=== PATIENT | female | born 1990 | race Caucasian/White ===

== ENCOUNTER 2016-08-14 09:03 | Emergency (ER) | payer MEDICAID ==
[~2016-08-14] VITALS: Ht 149.9 cm; Wt 65.9 kg
[~2016-08-14 09:03] MED LIST: IBUP400 PO
[2016-08-14 09:22] VITALS: BP 119/85; PULSE 86; RESP 16; TEMP 98.5; O2SAT 99
[2016-08-14] MEDS ORDERED: TUSSSUS2 PO (10:02)
--- NOTE | 2016-08-14 10:03 | PD ---
HPI . Cold symptoms Chief Complaint: Cold / Flu Symptoms Time Seen by Provider: 09:45 Travel History International Travel<30 days: No Contact w/Intl Traveler<30days: No Traveled to known affect area: No History of Present Illness HPI Patient presents with a 4 day history of cold symptoms. She describes nasal congestion, cough, chest discomfort with coughing and a temperature of 99.7. She reports some mild nasal bleeding which supports her nose. She states that her symptoms have been unrelieved by Robitussin. PFS Past Medical History Medical History: Denies Significant Hx Diminished Hearing: No Reproductive: Yes (hx abnormal pap smear) Immunizations Current: No Tetanus Vaccination: < 5 Years Influenza Vaccination: No ?: Not LMP: 2 weeks ago : 2 Para: 1 Miscarriage: 1 Past Surgical History Surgical History: No Previous Surgery Social History Alcohol Use: Yes (socially wine) Tobacco Use: Yes (07/15 PPD) Substance Use: No Allergies-Medications (Allergen,Severity, Reaction): Coded Allergies: No Known Allergies (Verified , 08/14/16) Reported Meds & Prescriptions Reported Meds & Active Scripts Active No Active Prescriptions or Reported Medications Review of Systems Except as stated in HPI: all other systems reviewed are Neg General / Constitutional: Positive: Fever, Chills HENT: Positive: Congestion, Other (no facial pain) Cardiovascular: Positive: Chest Pain or Discomfort Respiratory: Positive: Cough Physical Exam Narrative GENERAL: Healthy-appearing young woman in no acute distress. SKIN: Warm and dry. HEAD: Atraumatic. Normocephalic. EYES: Pupils equal and round. ENT: No nasal bleeding or discharge. Mucous membranes pink and moist. Oropharynx has no erythema, swelling, exudate or tonsillar enlargement. NECK: Trachea midline. Neck is supple with no cervical lymphadenopathy. CARDIOVASCULAR: Regular rate and rhythm. Heart sounds are normal. RESPIRATORY: No accessory muscle use. Lungs are clear with full air movement throughout. GASTROINTESTINAL: Abdomen soft, non-tender, nondistended. MUSCULOSKELETAL: No obvious deformities. No edema. NEUROLOGICAL: Awake and alert. No obvious cranial nerve deficits. Motor grossly within normal limits. Normal speech. PSYCHIATRIC: Appropriate mood and affect; insight and judgment normal. Data Data Last Documented VS Vital Signs Date Time Temp Pulse Resp B/P Pulse Ox O2 Delivery O2 Flow Rate FiO2 08/14/16 09:27 82 16 99 Room Air 08/14/16 09:22 98.5 119/85 [facility] Medical Decision Making Medical Screen Exam Complete: Yes Emergency Medical Condition: Yes Differential Diagnosis Differential diagnosis includes but is not limited to influenza, upper respiratory infection, bronchitis, pneumonia Narrative Course Patient presents with cold symptoms. She has no worrisome physical exam findings. She does state that she has been taking Robitussin without relief of her cough. Diagnosis Primary Impression: URI (upper respiratory infection) Qualified Code: J06.9 - Viral upper respiratory tract infection Patient Instructions: Cold Symptoms (ED), General Instructions Additional Instructions: I recommend the use of a Neti Pot. You may use a nasal spray such as Afrin for up to 3 days. You may take an yvno-sxi-ykkzhce antihistamine such as Zyrtec or Claritin as needed for runny secretions. You may take pseudoephedrine as needed for congestion. You will need to sign for this at the pharmacy. You may take a cough syrup such as Delsym as needed for cough. Med/Other Pt SpecificInfo: Prescription(s) given Scripts Hydrocodone-Chlorpheniramine 12 HR Liq (Tussionex Pennkinetic Ext 12 HR Liq)10- 8 Mg/5 Ml Susp5 Ml PO Q12H PRN (COUGH AND/OR COLD SYMPTOMS) #60 ML Ref 0 Prov:Cyn Baig MD 08/14/16 Disposition: 01 DISCHARGE HOME Condition: Stable Cyn Baig MD Aug 14, 2016 10:03
== END 2016-08-14 10:10 | disposition home or self-care (01) ==
LOC: PHEFT 09:03
DX: J06.9 Acute upper respiratory infection, unspecified (principal); F17.210 Nicotine dependence, cigarettes, uncomplicated
CPT/HCPCS: 99283

== ENCOUNTER 2017-01-14 22:13 | Emergency (ER) | payer MEDICAID, OTHER ==
[~2017-01-14] VITALS: Ht 149.9 cm; Wt 67.3 kg
[~2017-01-14 22:13] MED LIST changes: -IBUP400 PO; +TUSSSUS2 PO
[2017-01-14 22:17] VITALS: BP 110/64; PULSE 71; RESP 18; TEMP 98.1; O2SAT 100
[2017-01-14 23:21] LABS: BLOOD, URINE NEG (NEG); GLUCOSE,URINE NEG (NEG); KETONE, URINE NEG (NEG); NITRITE,URINE NEG (NEG); PH, URINE 5.5 (5.0-8.5)
[2017-01-14 23:26] LABS: MUCUS URINE OCC /lpf (OCC); SQUAMOUS EPITHELIAL CELL URINE 0-5 /hpf (0-5); URINE COLOR YELLOW (YELLW/STRAW)
[2017-01-14 23:28] LABS: COMMENT (UR) CULT NOT INDICATED; CULTURE IF INDICATED CULT NOT INDICATED; WBC, URINE 0-2 /hpf (0-5)
[2017-01-14 23:51] LABS: BETA HCG QUANT 34960 MIU/ML (0-5)
--- NOTE | 2017-01-15 00:07 | PD ---
HPI Chief Complaint: Related Problem Time Seen by Provider: 22:26 Travel History International Travel<30 days: No Contact w/Intl Traveler<30days: No Traveled to known affect area: No History of Present Illness HPI 26-year-old woman, 4 para 1, 0, 2, 1 with 2 previous early miscarriages , presents to the emergency department with an LMP of about December 02, with several weeks' worth of mild lower abdominal cramping. She otherwise had felt generally well. She denies any vaginal bleeding, vaginal discharge, urinary symptoms, or other janusz. States she came in tonight because it wasn't getting any better. History Past Medical History Medical History: Denies Significant Hx Tetanus Vaccination: < 5 Years Influenza Vaccination: No LMP: 12-01-16 : 4 Para: 2 Past Surgical History Surgical History: No Previous Surgery Social History Alcohol Use: Yes (socially wine) Tobacco Use: No (quit) Allergies-Medications (Allergen,Severity, Reaction): Coded Allergies: No Known Allergies (Verified , 01/14/17) Reported Meds & Prescriptions Reported Meds & Active Scripts Active Review of Systems Except as stated in HPI: all other systems reviewed are Neg Physical Exam Narrative GENERAL: Well-appearing 26-year-old woman, no acute distress. SKIN: Focused skin assessment warm/dry. CARDIOVASCULAR: Regular rate and rhythm. No murmur appreciated. RESPIRATORY: No accessory muscle use. Clear to auscultation. Breath sounds equal bilaterally. GASTROINTESTINAL: Abdomen soft, non-tender, nondistended. Hepatic and splenic margins not palpable. MUSCULOSKELETAL: No obvious deformities. No clubbing. No cyanosis. No edema. GENITOURINARY: Normal external genitalia without lesions or erythema. Vaginal vault without blood or drainage. Cervical os was closed without drainage. No cervical motion tenderness. Uterus nontender and nonenlarged. Bilateral adnexa nontender without masses. Data Data Last Documented VS Vital Signs Date Time Temp Pulse Resp B/P Pulse Ox O2 Delivery O2 Flow Rate FiO2 01/14/17 22:17 98.1 71 18 110/64 100 Orders Ed Poc Ultrasound (01/14/17 ) Beta Hcg (Quant/Titer) (01/14/17 22:51) Gc And Chlamydia Pcr (01/14/17 22:51) Wet Prep Profile (01/14/17 22:51) Urinalysis - C+S If Indicated (01/14/17 22:51) Ed Urine Pregnancytest Poc (01/14/17 22:51) Labs Laboratory Tests Test 01/14/17 23:10 Urine Color YELLOW Urine Turbidity CLEAR Urine pH 5.5 Urine Specific [place] 1.023 Urine Protein NEG mg/dL Urine Glucose (UA) NEG mg/dL Urine Ketones NEG mg/dL Urine Occult Blood NEG Urine Nitrite NEG Urine Bilirubin NEG Urine Leukocyte Esterase NEG Urine WBC 0-2 /hpf Urine Squamous Epithelial 0-5 /hpf Cells Urine Mucus OCC /lpf Microscopic Urinalysis Comment CULT NOT INDICATED Clue Cells (Wet Prep) NONE SEEN Vaginal Trichomonas (Wet Prep) NONE SEEN Vaginal Yeast (Wet Prep) NONE SEEN MDM Medical Decision Making Medical Screen Exam Complete: Yes Emergency Medical Condition: Yes Interpretation(s) UA negative HCG 34,000 Wet prep negative GC chlamydia pending Differential Diagnosis Threatened AB, ectopic, miscarriage, IUP, other Narrative Course Medical decision-making new para 26-year-old young woman with mild pelvic cramping ongoing for couple weeks in the setting of . Elevated hCG but unable to visualize an IUP on bedside ultrasound. We'll give formal ultrasound. The last Dr. Prasad to follow-up on the results of that ultrasound will write her up to go. I think she has an IUP. Diagnosis Primary Impression: Additional Impression: Abdominal cramping affecting Additional Instructions: Follow-up with your production planning manager at the first available point. Return to the emergency department for any new or worsening symptoms. Med/Other Pt SpecificInfo: No Change to Meds Disposition: 01 DISCHARGE HOME Condition: Stable Juan Mahan MD Jan 15, 2017 00:07
[2017-01-15 01:00] VITALS: BP 114/67; PULSE 70; RESP 16; O2SAT 99
--- NOTE | 2017-01-15 02:16 | RADRPT ---
EXAM DATE/TIME: 01/15/2017 00:58 [facility] COMPARISON: No previous studies available for comparison. INDICATIONS : Pelvic pain with . LAB(S): Beta-hC MEDICAL HISTORY : . Miscarriage x 2. SURGICAL HISTORY : None. ENCOUNTER: Initial ACUITY: 3 weeks PAIN SCORE: 5/10 LOCATION: Bilateral pelvis MEASUREMENTS: UTERUS: 9.4 x 6.1 x 5.7 cm ENDOMETRIAL STRIPE: >20 mm RIGHT OVARY: 3.6 x 2.1 x 1.7 cm LEFT OVARY: 4.3 x 2.8 x 2.5 cm FREE FLUID: No CROWN RUMP LENGTH: 0.46 cm = 6 WKS 1 DAYS FHR: 116 BPM FINDINGS: UTERUS: Intrauterine with yolk sac estimated at 6 weeks and one day. heart tones at 116 beats per minute. Small subchorionic hemorrhage measures 16 x 12 x 25 mm. Nabothian cyst. RIGHT OVARY: Ovary contains no mass or significant cystic lesion. LEFT OVARY: Complex cyst measures 2.6 x 1.9 x 2.0 cm with MISCELLANEOUS: No free fluid. CONCLUSION: 1. Intrauterine estimated 6 weeks and one day. 2. Small subchorionic hemorrhage measuring 1.6 x 1.2 x 2.5 cm. 3. Complex cyst left ovary measures 2.6 cm likely corpus luteal cyst. Prashant Cobos MD on January 15, 2017 at 2:11 Board Certified Radiologist. This report was verified electronically.
--- NOTE | 2017-01-15 02:31 | PD ---
Physical Exam Time Seen by Provider: 02:[address] Mahan left this patient with me to check the ultrasound and make a disposition, likely discharge. Data Data Last Documented VS Vital Signs Date Time Temp Pulse Resp B/P Pulse Ox O2 Delivery O2 Flow Rate FiO2 01/15/17 01:00 70 16 114/67 99 Room Air 01/14/17 22:17 98.1 Orders Ed Poc Ultrasound (01/14/17 ) Beta Hcg (Quant/Titer) (01/14/17 22:51) Gc And Chlamydia Pcr (01/14/17 22:51) Wet Prep Profile (01/14/17 22:51) Urinalysis - C+S If Indicated (01/14/17 22:51) Ed Urine Pregnancytest Poc (01/14/17 22:51) Us Pelvis (Ques Pr/Ect)W Trans (01/15/17 ) Labs Laboratory Tests Test 01/14/17 01/14/17 23:00 23:10 Human Chorionic Gonadotropin, 76120 MIU/ML Quant Urine Color YELLOW Urine Turbidity CLEAR Urine pH 5.5 Urine Specific [place] 1.023 Urine Protein NEG mg/dL Urine Glucose (UA) NEG mg/dL Urine Ketones NEG mg/dL Urine Occult Blood NEG Urine Nitrite NEG Urine Bilirubin NEG Urine Leukocyte Esterase NEG Urine WBC 0-2 /hpf Urine Squamous Epithelial 0-5 /hpf Cells Urine Mucus OCC /lpf Microscopic Urinalysis Comment CULT NOT INDICATED Clue Cells (Wet Prep) NONE SEEN Vaginal Trichomonas (Wet Prep) NONE SEEN Vaginal Yeast (Wet Prep) NONE SEEN MDM Medical Record Reviewed: Yes Supervised Visit with CHAPIN: No Interpretation(s) The ultrasound shows intrauterine at 6 weeks 1 day. There is a small subchorionic hemorrhage measuring 1.61.22.5 cm. There is a complex cyst on the left ovary which measures 2.6 cm which is likely a corpus luteal cyst. Review of old records reveals a positive blood type. Differential Diagnosis demise, impending , ectopic , normal intrauterine Narrative Course The patient has a intrauterine 6 weeks and 1 day. She also has a corpus luteal cyst and small subchorionic hemorrhage. Plan: The patient should follow-up with avionics system engineer. Diagnosis Primary Impression: Additional Impression: Abdominal cramping affecting Additional Instruction: Follow-up with your avionics system engineer at the first available point. Return to the emergency department for any new or worsening symptoms. Med/Other Pt SpecificInfo: No Change to Meds Disposition: 01 DISCHARGE HOME Condition: Stable Grabiel Prasad MD Jan 15, 2017 02:31
[2017-01-15 02:34] VITALS: BP 108/59
[2017-01-15 12:08] LABS: CHLAMYDIA PCR NOT DETECTED (NOT DETECT); NEISSERIA PCR NOT DETECTED (NOT DETECT)
== END 2017-01-15 02:50 | disposition home or self-care (01) ==
LOC: PHED 22:13
DX: O26.891 Other specified pregnancy related conditions, first trimester (principal); R10.2 Pelvic and perineal pain; Z3A.01 Less than 8 weeks gestation of pregnancy
CPT/HCPCS: 76700; 76817; 81001; 84702; 84703; 87210; 87491; 87591

== ENCOUNTER 2017-05-25 20:07 | Emergency (ER) | payer MEDICAID ==
[~2017-05-25] VITALS: Ht 149.9 cm; Wt 74.7 kg
[2017-05-25 20:12] VITALS: BP 117/59; PULSE 90; RESP 18; TEMP 98.4
--- NOTE | 2017-05-25 20:33 | PD ---
HPI Chief Complaint: Abdominal Pain Time Seen by Provider: 20:32 Travel History International Travel<30 days: No Contact w/Intl Traveler<30days: No Traveled to known affect area: No History of Present Illness HPI 27-year-old female came to the emergency room with history of lower abdominal cramps. Patient is 27 weeks . She says that this cramping has been going on for past 1 week and now today it has worsened. No history of bleeding or spotting. Patient is A2. She says so far the has been going good. She felt that for past 1 week the baby has not been moving too much. No history of dysuria, vomiting, diarrhea or any other symptoms. [facility] Past Medical History Narrative Medical list of her past medical, surgical, social and family history is reviewed from the nursing note. Diminished Hearing: No Reproductive: Yes (hx abnormal pap smear) Immunizations Current: No ?: LMP: december 01 : 4 Para: 2 Miscarriage: 1 Social History Alcohol Use: Yes (socially wine) Tobacco Use: No (quit) Substance Use: No Allergies-Medications (Allergen,Severity, Reaction): Coded Allergies: No Known Allergies (Verified Adverse Reaction, Unknown, 05/25/17) Comments No known drug allergies. Reported Meds & Prescriptions Reported Meds & Active Scripts Active Reported + Complete Multi 18-0.8 & 290 mg ( Mv & Min W/Fe Prot Diez) 18 Mg Iron-800 Mcg-290 Mg-225 Mg Krunal Narrative Medication List of her home medications reviewed from the nursing note. Review of Systems Except as stated in HPI: all other systems reviewed are Neg Genitourinary: Positive: Pelvic Pain Physical Exam Narrative GENERAL: Awake, alert, no obvious distress SKIN: Focused skin assessment warm/dry. HEAD: Atraumatic. Normocephalic. EYES: Pupils equal and round. No scleral icterus. No injection or drainage. ENT: No nasal bleeding or discharge. Mucous membranes pink and moist. NECK: Trachea midline. No JVD. CARDIOVASCULAR: Regular rate and rhythm. No murmur appreciated. RESPIRATORY: No accessory muscle use. Clear to auscultation. Breath sounds equal bilaterally. GASTROINTESTINAL: Abdomen soft, non-tender, nondistended. Hepatic and splenic margins not palpable. Gravid uterus, fundal height 26-27 weeks MUSCULOSKELETAL: No obvious deformities. No clubbing. No cyanosis. No edema. NEUROLOGICAL: Awake and alert. No obvious cranial nerve deficits. Motor grossly within normal limits. Normal speech. PSYCHIATRIC: Appropriate mood and affect; insight and judgment normal. Data Data Last Documented VS Orders Orders Ed Discharge Order (05/25/17 20:43) MDM Medical Decision Making Medical Screen Exam Complete: Yes Emergency Medical Condition: Yes Medical Record Reviewed: Yes Differential Diagnosis [place] Hernandez contractions, premature labor Narrative Course 8:48 PM heart tones were measured by Doppler as 160 bpm. I discussed the case with Dr. Aguilera and he agreed that the patient should be seen at the labor and delivery main hospital. He was okay with her driving her to the hospital. Given these instructions to the patient as well as her . They're discharged with instructions to go straight to the [facility] labor and delivery. They have expressed understanding. Procedures EKG Prior to Arrival: No Diagnosis Primary Impression: Abdominal cramping affecting Additional Impression: Third trimester Additional Instructions: Please go straight to the [facility] and be seen at the labor and delivery. Dr. Aguilera is aware of your arrival. Disposition: 01 DISCHARGE HOME Condition: Stable Riley Moore MD May 25, 2017 20:33
[2017-05-25] MEDS ORDERED: PREN1PAK9 (20:40)
== END 2017-05-25 20:53 | disposition home or self-care (01) ==
LOC: PHED 20:07
DX: O26.893 Other specified pregnancy related conditions, third trimester (principal); R10.30 Lower abdominal pain, unspecified; Z3A.27 27 weeks gestation of pregnancy
CPT/HCPCS: 99284

== ENCOUNTER 2017-05-25 21:40 | Emergency (ER) | payer MEDICAID ==
[~2017-05-25 21:40] MED LIST changes: +PREN1PAK9; -TUSSSUS2 PO
--- NOTE | 2017-05-25 22:22 | PD ---
HPI Chief Complaint Cramping for 1 week Date Seen: May 25, 2017 Time Seen: 22:17 Travel History International Travel<30 Days: No Contact w/Intl Traveler<30Days: No Known Affected Area: No History of Present Illness HPI 27-year-old 3 para 1 at 25+ weeks gestation who comes today with concern because of cramping for the last week. She denies any bleeding, vaginal discharge or leakage of fluid. No dysuria hematuria or frequency. History Past Medical History Medical History: Denies Significant Hx Obstetric History Obstetric History One prior 37 week vaginal delivery One prior miscarriage Current under the care of Dr. Abarca. No complications Past Surgical History Narrative Surgical None Surgical History: No Previous Surgery Family History Family History: Negative Social History Alcohol Use: No Tobacco Use: No Substance Abuse: No Allergies-Medications (Allergen,Severity, Reaction): Coded Allergies: No Known Allergies (Verified Adverse Reaction, Unknown, 05/25/17) Home Meds Reported Medications Mv & Min W/Fe Prot Diez ( + Complete Multi 18-0.8 & 290 mg) 18 Mg Iron-800 Mcg-290 Mg-225 Mg Krunal 05/25/17 Review of Systems Except as stated in HPI: all other systems reviewed are Neg Physical Exam Narrative GENERAL: Well-nourished, well-developed patient. SKIN: Warm and dry. HEAD: Normocephalic and atraumatic. EYES: No scleral icterus. No injection or drainage. ENT: No nasal drainage noted. Mucous membranes pink. Airway patent. NECK: Supple, trachea midline. No JVD. CARDIOVASCULAR: Regular rate and rhythm without murmurs, gallops, or rubs. RESPIRATORY: Breath sounds equal bilaterally. No accessory muscle use. ABDOMEN/GI: Abdomen soft, non-tender, bowel sounds present, no rebound, no guarding Gravid to [-] weeks size Fundal Height: [-] GENITOURINARY: External Genitalia: intact and normal in appearance BUS glands: [Negative] Cervix: [-] Dilatation: [Closed-] Effacement: [-Long] Station: [-High] Presentation: [-] Membranes: [intact] Uterine Contractions: [-None] FHT's: Category: [1-] Baseline: [-] Reactive: [-] Variability: [-] Decels: [-] EXTREMITIES: No cyanosis or edema. BACK: Nontender without obvious deformity. No CVA tenderness. NEUROLOGICAL: Awake and alert. Motor and sensory grossly within normal limits. Five out of 5 muscle strength in all muscle groups. Normal speech. Data Data Vital Signs Reviewed: Yes Orders Orders Vital Signs (Adult) .ON ADMISSION (05/25/17 22:16) ^ Labor Status (05/25/17 22:16) Urinalysis - C+S If Indicated (05/25/17 22:16) MDM Medical Record Reviewed: Yes Narrative Course / MDM Assessment: 27-year-old 3 para 1 at 25+ weeks gestation with cramping without evidence of contractions or cervical change. Plan: Her urinalysis was negative. I encouraged her to hydrate and be vigilant for any additional signs of labor and to follow-up with Dr. Abarca as scheduled. Diagnosis Diagnosis: Primary Impression: 25 weeks gestation of Additional Impression: Abdominal cramping affecting Disposition: 01 DISCHARGE HOME Condition: Good Juan Juan MD May 25, 2017 22:21
[2017-05-25 22:36] LABS: BACTERIA, URINE RARE /hpf; BLOOD, URINE NEG (NEG); COMMENT (UR) CULT NOT INDICATED; CULTURE IF INDICATED CULT NOT INDICATED; GLUCOSE,URINE NEG (NEG); KETONE, URINE NEG (NEG); MUCUS URINE FEW /lpf (OCC); NITRITE,URINE NEG (NEG); SQUAMOUS EPITHELIAL CELL URINE 2 /hpf (0-5); URINE COLOR YELLOW (YELLW/STRAW)
== END 2017-05-25 22:25 | disposition home or self-care (01) ==
LOC: HOBED 21:40
DX: O26.892 Other specified pregnancy related conditions, second trimester (principal); R10.9 Unspecified abdominal pain; Z3A.25 25 weeks gestation of pregnancy
CPT/HCPCS: 81001; 99284

== ENCOUNTER 2017-07-18 21:24 | Emergency (ER) | payer MEDICAID ==
--- NOTE | 2017-07-18 22:17 | PD ---
HPI Chief Complaint [place] Hernandez contractions, decreased movement Date Seen: Jul 18, 2017 Time Seen: 22:13 Travel History International Travel<30 Days: No Contact w/Intl Traveler<30Days: No Known Affected Area: No History of Present Illness HPI 27-year-old 4 para 1 AB 2 at 33+ weeks gestation who reports that she's had [place] Hernandez contractions for several weeks. She states that these are not necessarily any worse tonight. Has noticed decreased movement this afternoon. She denies any leakage, bleeding or increasing contraction intensity. History Past Medical History Medical History: Denies Significant Hx Obstetric History Obstetric History 1 prior 37 week vaginal delivery 2 SABs Current under the care of Dr. Abarca Past Surgical History Surgical History: No Previous Surgery Family History Family History: Negative Social History Alcohol Use: No Tobacco Use: No Substance Abuse: No Allergies-Medications (Allergen,Severity, Reaction): Coded Allergies: No Known Allergies (Verified Adverse Reaction, Unknown, 05/25/17) Home Meds Reported Medications Mv & Min W/Fe Prot Diez ( + Complete Multi 18-0.8 & 290 mg) 18 Mg Iron-800 Mcg-290 Mg-225 Mg Krunal 05/25/17 Review of Systems Except as stated in HPI: all other systems reviewed are Neg Physical Exam Narrative GENERAL: Well-nourished, well-developed patient. SKIN: Warm and dry. HEAD: Normocephalic and atraumatic. EYES: No scleral icterus. No injection or drainage. ENT: No nasal drainage noted. Mucous membranes pink. Airway patent. NECK: Supple, trachea midline. No JVD. CARDIOVASCULAR: Regular rate and rhythm without murmurs, gallops, or rubs. RESPIRATORY: Breath sounds equal bilaterally. No accessory muscle use. ABDOMEN/GI: Abdomen soft, non-tender, bowel sounds present, no rebound, no guarding Gravid to [-] weeks size Fundal Height: [-] GENITOURINARY: External Genitalia: intact and normal in appearance BUS glands: [Negative-] Cervix: [-] Dilatation: [-Closed] Effacement: [-Long] Station: [High-] Presentation: [-] Membranes: [intact ] Uterine Contractions: [-Minimal] FHT's: Category: [-1] Baseline: [-] Reactive: [Yes-] Variability: [-] Decels: [-] EXTREMITIES: No cyanosis or edema. BACK: Nontender without obvious deformity. No CVA tenderness. NEUROLOGICAL: Awake and alert. Motor and sensory grossly within normal limits. Five out of 5 muscle strength in all muscle groups. Normal speech. MDM Medical Record Reviewed: Yes Narrative Course / MDM Assessment: 33 week intrauterine with reactive NST, no evidence of dilation Plan: Labor precautions were reviewed. Encouraged hydration. Follow-up as needed. Diagnosis Diagnosis: Primary Impression: 33 weeks gestation of Additional Impressions: [place] Hernandez contractions Decreased movement affecting management of in third trimester Disposition: 01 DISCHARGE HOME Condition: Good Juan Juan MD Jul 18, 2017 22:17
== END 2017-07-18 22:58 | disposition home or self-care (01) ==
LOC: HOBED 21:24
DX: O47.03 False labor before 37 completed weeks of gestation, third trimester (principal); O36.8130 Decreased fetal movements, third trimester, not applicable or unspecified; Z3A.33 33 weeks gestation of pregnancy
CPT/HCPCS: 59025

== ENCOUNTER 2017-08-21 11:42 | Observation (INO) | payer MEDICAID ==
[~2017-08-21] VITALS: Ht 149.9 cm; Wt 79.0 kg
[2017-08-21 13:32] LABS: AUTOMATED NEUTROPHIL # 7.3 TH/MM3 (1.8-7.7); BASOPHIL % 0.4 % (0.0-2.0); EOSINOPHIL # 0.1 TH/MM3 (0-0.4); EOSINOPHIL % 1.5 % (0.0-4.0); HEMATOCRIT 40.1 % (35.0-46.0); LYMPH % 14.1 % (9.0-44.0); LYMPHOCYTE # 1.3 TH/MM3 (1.0-4.8); MEAN CELL VOLUME 84.9 FL (80.0-100.0); MEAN CORPUSCULAR HEMOGLOBIN 29.6 PG (27.0-34.0); MEAN CORPUSCULAR HGB CONC 34.9 % (32.0-36.0); MEAN PLATELET VOLUME 7.8 FL (7.0-11.0); MONO % 7.3 % (0.0-8.0); MONOCYTE # 0.7 TH/MM3 (0-0.9); NEUT % 76.7 % (16.0-70.0); PLATELET COUNT 170 TH/MM3 (150-450); RED BLOOD COUNT 4.72 MIL/MM3 (4.00-5.30); RED CELL DISTRIBUTION WIDTH 13.6 % (11.6-17.2); WHITE BLOOD COUNT 9.5 TH/MM3 (4.0-11.0)
[2017-08-21 13:35] LABS: BACTERIA, URINE RARE /hpf; BILIRUBIN, URINE NEG (NEG); BLOOD, URINE NEG (NEG); GLUCOSE,URINE NEG (NEG); KETONE, URINE 80 mg/dL (NEG); MUCUS URINE FEW /lpf (OCC); NITRITE,URINE NEG (NEG); PH, URINE 5.5 (5.0-8.5); SQUAMOUS EPITHELIAL CELL URINE 20 /hpf (0-5); URINE COLOR YELLOW (YELLW/STRAW); URINE LEUKOCYTE ESTERASE SMALL (NEG)
[2017-08-21] MEDS ORDERED: TERBUTALINE INJ 1 MG/ML AMP ONE (13:45)
[2017-08-21] MEDS: LACTATED RINGER'S 1000 ML IV SCH ×2 (14:00→15:16)
[2017-08-21] MEDS ORDERED: TERBUTALINE INJ 1 MG/ML AMP SQ ONE (14:00)
--- NOTE | 2017-08-23 11:10 | MP ---
cc: DUKE CORREA DATE OF SURGERY: 08/21/17 PREOPERATIVE DIAGNOSIS Breech presentation. POSTOPERATIVE DIAGNOSIS Breech presentation. PROCEDURE External cephalic version which failed. ANESTHESIA None. FINDINGS Under ultrasound guidance, we found that the baby was breech and there was about 19 cm of fluid. It looked like a fairly good easy turn except that the baby was very low in the pelvis. Giving the patient IV fluids, we did a nonstress test which was reactive and the baby looks good. We began by ultrasounding her and found where the vertex was. We tried a forward summersault, we tried a backward summersault. I had Dr. Eng attempt a version as well. The baby would not budge. We put her in Trendelenburg and we attempted again. The baby would not budge. At this point, we stopped the procedure. The external cephalic version failed and she was still in the breech position. We discussed some supervisor purification remedies for this and we will monitor her for a little over an hour and perhaps give her some terbutaline post procedure because she was adrienne every 3 minutes. Her CLAM TREADER was negative and they will call me if there is any problem with the strip post procedure. The patient tolerated the procedure well and will be monitored for a little over an hour. R. MD ELVI Ramos/JOLENE /4:54 PM /10:52 AM
== END 2017-08-21 16:07 | disposition home or self-care (01) ==
LOC: H2EB 11:42
PROVIDERS: ADMIT Obstetrics & Gynecology; ATTEND Obstetrics & Gynecology
DX: O32.1XX0 Maternal care for breech presentation, not applicable or unspecified (principal)
CPT/HCPCS: 81001; 85025; 86850; 86900; 86901; 96372; G0378; J3105; J7120

== ENCOUNTER 2017-09-01 10:04 | Inpatient (IN) | payer MEDICAID ==
[~2017-09-01] VITALS: Ht 149.9 cm; Wt 79.0 kg
[2017-09-01] VITALS (9 sets, daily range): BP systolic 109–120; BP diastolic 59–75; PULSE 81–99; RESP 16–20; TEMP 97.5–98.3; O2SAT 97–99
[2017-09-01] MEDS ORDERED: LACTATED RINGER'S 1000 ML INJ 1,000 ML IV ONE ×2 (10:17→12:00)
[2017-09-01] MEDS ORDERED: LACTATED RINGER'S 1000 ML INJ 1,000 ML IV SCH (10:47)
--- NOTE | 2017-09-01 10:49 | PD ---
HPI Chief Complaint Primary for Breech Presentation Date Seen: Sep 01, 2017 Travel History International Travel<30 Days: No Contact w/Intl Traveler<30Days: No History of Present Illness HPI Patient is a 27 year old at 39-1/7 weeks gestation who presents today for C -section for breech presentation. She had a failed external cephalic version on 08/23/17. She denies any vaginal bleeding or discharge. No gush or leaking of fluid. Positive movement. History Past Medical History Medical History: Denies Significant Hx Obstetric History Obstetric History at 37-3/7 weeks gestation, weight 3235g 03/31/2012 Spontaneous x 3 Past Surgical History Surgical History: No Previous Surgery Family History Family History: Negative Social History Alcohol Use: No Tobacco Use: No Substance Abuse: No Allergies-Medications (Allergen,Severity, Reaction): Coded Allergies: No Known Allergies (Verified Allergy, Unknown, 08/21/17) Home Meds Reported Medications Mv & Min W/Fe Prot Diez ( + Complete Multi 18-0.8 & 290 mg) 18 Mg Iron-800 Mcg-290 Mg-225 Mg Krunal 05/25/17 Review of Systems Except as stated in HPI: all other systems reviewed are Neg General / Constitutional: No: Fever, Chills Eyes: No: Blurred Vision, Visual changes HENT: No: Headaches Cardiovascular: No: Chest Pain or Discomfort, Palpitations Respiratory: No: Cough, Short of Breath Gastrointestinal: No: Nausea, Vomiting, Abdominal Pain Genitourinary: No: Dysuria, Hematuria, Pelvic Pain, Discharge, Vaginal Bleeding Musculoskeletal: No: Edema Neurologic: No: Headache Psychiatric: No: Substance Abuse Physical Exam Vital Signs Date Time Temp Pulse Resp B/P (MAP) Pulse Ox O2 Delivery O2 Flow Rate FiO2 09/01/17 10:23 98.3 16 Narrative GENERAL: Well-nourished, well-developed patient. SKIN: Warm and dry. HEAD: Normocephalic and atraumatic. EYES: No scleral icterus. No injection or drainage. ENT: No nasal drainage noted. Mucous membranes pink. Airway patent. NECK: Supple, trachea midline. No JVD. CARDIOVASCULAR: Regular rate and rhythm without murmurs, gallops, or rubs. RESPIRATORY: Breath sounds equal bilaterally. No accessory muscle use. BREASTS: Bilateral exam showed no masses , no retractions, no nipple discharge. ABDOMEN/GI: Abdomen soft, non-tender, bowel sounds present, no rebound, no guarding Gravid to 39 weeks size GENITOURINARY: External Genitalia: intact and normal in appearance Presentation: Breech Membranes: intact Uterine Contractions: q2-3min FHT's: Category: I Baseline: 150 Reactive: + Variability: moderate Decels: none EXTREMITIES: No cyanosis or edema. BACK: Nontender without obvious deformity. No CVA tenderness. NEUROLOGICAL: Awake and alert. Motor and sensory grossly within normal limits. Normal speech. Data Data Vital Signs Reviewed: Yes Orders Orders Admit To Inpatient (09/01/17 ) Code Status (09/01/17 10:17) Vital Signs (Adult) .ON ADMISSION (09/01/17 10:17) Activity Oob Ad Gela (09/01/17 10:17) Heart (09/01/17 10:17) Urinary Catheter Management KAE.Q8H (09/01/17 10:17) ^ Preps (09/01/17 10:17) Scd / Vinny / Foot Pump KAE.QSHIFT (09/01/17 10:17) ^ Ultrasound For Locatio (09/01/17 10:17) Diet Npo (09/01/17 Lunch) Lactated Ringer's 1000 Ml Inj (Lr 1000 M (09/01/17 10:17) Lactated Ringer's 1000 Ml Inj (Lr 1000 M (09/01/17 10:47) Cefazolin 2 Gm Premix (Ancef 2 Gm Premix (09/01/17 11:30) Citric Acid-Sodium Citrate Liq (Bicitra (09/01/17 12:00) Type And Screen (09/01/17 10:17) Complete Blood Count With Diff (09/01/17 10:17) Urinalysis - C+S If Indicated (09/01/17 10:17) Drug Screen, Random Urine (09/01/17 10:17) Inpatient Certification (09/01/17 ) Specimen To Be Collected PRN (09/01/17 10:17) Specimen To Be Collected PRN (09/01/17 10:17) Group B Strep: Negative MDM Medical Record Reviewed: Yes Narrative Course / MDM Patient is a 27 year old at 39-1/7 weeks gestation. 1. IUP- Category I tracing, reassuring. 2. Primary for Breech Presentation s/p failed external cephalic version. 3. GBS negative. dw Lakisha Carson MD, R3 Sep 01, 2017 10:49
[2017-09-01 11:20] LABS: AUTOMATED NEUTROPHIL # 8.3 TH/MM3 (1.8-7.7); BASOPHIL % 0.3 % (0.0-2.0); EOSINOPHIL # 0.3 TH/MM3 (0-0.4); EOSINOPHIL % 3.1 % (0.0-4.0); HEMATOCRIT 41.3 % (35.0-46.0); LYMPH % 14.8 % (9.0-44.0); LYMPHOCYTE # 1.6 TH/MM3 (1.0-4.8); MEAN CELL VOLUME 85.2 FL (80.0-100.0); MEAN CORPUSCULAR HEMOGLOBIN 28.9 PG (27.0-34.0); MONOCYTE # 0.8 TH/MM3 (0-0.9); NEUT % 74.8 % (16.0-70.0); PLATELET COUNT 210 TH/MM3 (150-450); RED BLOOD COUNT 4.84 MIL/MM3 (4.00-5.30); RED CELL DISTRIBUTION WIDTH 13.7 % (11.6-17.2); WHITE BLOOD COUNT 11.1 TH/MM3 (4.0-11.0)
[2017-09-01] MEDS ORDERED: ceFAZolin 2 GM PREMIX 50 ML IV SCH (11:30)
[2017-09-01 11:45] LABS: BACTERIA, URINE RARE /hpf; BILIRUBIN, URINE NEG (NEG); BLOOD, URINE NEG (NEG); GLUCOSE,URINE NEG (NEG); HYALINE CAST, URINE 1 /lpf (RARE); KETONE, URINE NEG (NEG); MUCUS URINE FEW /lpf (OCC); NITRITE,URINE NEG (NEG); SQUAMOUS EPITHELIAL CELL URINE 10 /hpf (0-5); URINE COLOR YELLOW (YELLW/STRAW); URINE LEUKOCYTE ESTERASE NEG (NEG)
[2017-09-01] MEDS ORDERED: ePHEDrine/NS 25 MG/5 ML SYRINGE IV ONE (12:00)
[2017-09-01] MEDS ORDERED: ONDANSETRON HCL 4 MG/2 ML VIAL IV ONE (12:00)
[2017-09-01] MEDS ORDERED: CITRIC ACID-SODIUM CITRATE LIQ 30 ML UDC PO SCH (12:00)
[2017-09-01] MEDS ORDERED: PHENYLEPH/NS 1000 MCG/10 ML SYR IV ONE (12:00)
[2017-09-01] MEDS ORDERED: OXYTOCIN 10 UNIT/ML AMP IV ONE (12:00)
[2017-09-01] MEDS ORDERED: MORPHINE SULFATE PF 5 MG/10 ML VIAL ONE (12:27)
[2017-09-01] MEDS ORDERED: ONDANSETRON HCL 4 MG/2 ML VIAL IV PUSH PRN (14:00)
[2017-09-01] MEDS ORDERED: ZOLPIDEM TARTRATE 5 MG TAB PO PRN (14:00)
[2017-09-01] MEDS ORDERED: OXYTOCIN 30 UNITS-500ML PREMIX 500 ML IV ONE ×2 (14:00)
[2017-09-01] MEDS ORDERED: SIMETHICONE 80 MG CHEWABLE TAB PO PRN (14:00)
[2017-09-01] MEDS ORDERED: ACETAMINOPHEN 325 MG TAB PO PRN (14:00)
[2017-09-01] MEDS ORDERED: oxyCODONE/ACETAMINOPHEN 5 MG/325 MG TAB PO PRN (14:00)
[2017-09-01] MEDS ORDERED: SODIUM CHLORIDE 0.9% FLUSH 10 ML FLUSH IV FLUSH PRN (14:00)
[2017-09-01] MEDS ORDERED: OXYTOCIN 30 UNITS-500ML PREMIX 500 ML ONE (14:25)
[2017-09-01] MEDS ORDERED: KETOROLAC TROMETHAMINE 60 MG/2 ML (IM) VIAL IM ONE (17:15)
[2017-09-01] MEDS: LACTATED RINGER'S 1000 ML INJ 1,000 ML IV SCH (21:22)
[2017-09-01] MEDS: SODIUM CHLORIDE 0.9% FLUSH 10 ML FLUSH IV FLUSH SCH (23:49)
[2017-09-02] MEDS ORDERED: OXYTOCIN 30 UNITS-500ML PREMIX 500 ML IV PRN
[2017-09-02 00:20] VITALS: BP 123/66; PULSE 98; RESP 20; TEMP 98.3; O2SAT 98
[2017-09-02] MEDS: LACTATED RINGER'S 1000 ML INJ 1,000 ML IV SCH (04:13)
[2017-09-02] MEDS: oxyCODONE/ACETAMINOPHEN 5 MG/325 MG TAB PO PRN ×4 (05:17→20:18)
[2017-09-02] MEDS: IBUPROFEN 600 MG TAB PO PRN ×3 (05:17→17:39)
[2017-09-02 05:20] VITALS: BP 117/70; PULSE 91; RESP 18; TEMP 98.3; O2SAT 96
[2017-09-02 06:03] LABS: AUTOMATED NEUTROPHIL # 11.1 TH/MM3 (1.8-7.7); BASOPHIL % 0.1 % (0.0-2.0); EOSINOPHIL # 0.1 TH/MM3 (0-0.4); EOSINOPHIL % 0.8 % (0.0-4.0); HEMATOCRIT 36.5 % (35.0-46.0); HEMOGLOBIN 12.3 GM/DL (11.6-15.3); LYMPH % 7.2 % (9.0-44.0); LYMPHOCYTE # 0.9 TH/MM3 (1.0-4.8); MEAN CELL VOLUME 85.7 FL (80.0-100.0); MEAN CORPUSCULAR HEMOGLOBIN 28.8 PG (27.0-34.0); MEAN CORPUSCULAR HGB CONC 33.7 % (32.0-36.0); MEAN PLATELET VOLUME 7.8 FL (7.0-11.0); MONO % 5.4 % (0.0-8.0); MONOCYTE # 0.7 TH/MM3 (0-0.9); NEUT % 86.5 % (16.0-70.0); PLATELET COUNT 185 TH/MM3 (150-450); RED BLOOD COUNT 4.26 MIL/MM3 (4.00-5.30); RED CELL DISTRIBUTION WIDTH 13.4 % (11.6-17.2); WHITE BLOOD COUNT 12.8 TH/MM3 (4.0-11.0)
[2017-09-02 08:00] VITALS: BP 104/73; PULSE 99; RESP 16; TEMP 97.6; O2SAT 97
--- NOTE | 2017-09-02 08:37 | HHI.OB ---
Subjective Post Operative Day: 1 Objective Vitals/I&O Vital Signs Date Time Temp Pulse Resp B/P (MAP) Pulse Ox O2 Delivery O2 Flow Rate FiO2 09/02/17 05:20 117/70 (86) 09/02/17 05:20 98.3 91 18 96 09/02/17 00:20 98.3 98 20 123/66 (85) 98 09/01/17 20:20 97.5 99 18 113/71 (85) 97 09/01/17 16:20 97.8 98 16 109/74 (86) 09/01/17 14:59 95 18 115/64 (81) 09/01/17 14:54 98.3 09/01/17 14:38 99 118/59 (78) 09/01/17 14:38 18 09/01/17 14:23 93 18 111/63 (79) 09/01/17 14:10 85 120/63 (82) 09/01/17 14:10 98.2 20 09/01/17 14:10 99 09/01/17 10:24 81 118/75 (89) 09/01/17 10:23 98.3 16 Result Diagram: 09/02/17 0508 Objective Remarks GENERAL: Well-nourished, well-developed patient. CARDIOVASCULAR: Regular rate and rhythm without murmurs, gallops, or rubs. RESPIRATORY: Breath sounds equal bilaterally. No accessory muscle use. ABDOMEN/GI: Abdomen soft, non-tender, bowel sounds present. Incision: pressure dressing Clean, dry and intact. Fundus: Firm, non-tender at umbilicus. GENITOURINARY: Light to moderate bleeding. EXTREMITIES: No cyanosis , non-tender, without signs of DVT, slight lower extremity edema Medications and IVs Current Medications Medications (Trade) Dose Ordered Sig/Amanda Route Start Time Stop Time Status Last Admin Lactated Ringer's 1,000 ml @ 100 mls/hr Q10H IV 09/01/17 18:50 09/02/17 14:49 09/01/17 21:22 Oxytocin 500 ml @ 100 mls/hr UNSCH X1 PRN IV 09/02/17 00:00 09/02/17 23:59 (NS Flush) 2 ml BID IV FLUSH 09/01/17 21:00 (NS Flush) 2 ml UNSCH PRN IV FLUSH 09/01/17 14:00 (Mylicon Chew) 80 mg QID PRN PO 09/01/17 14:00 (Tylenol) 650 mg Q6H PRN PO 09/01/17 14:00 (Motrin) 600 mg Q6H PRN PO 09/01/17 14:00 09/02/17 05:17 (Percocet 5-325 Mg) 1 tab Q4H PRN PO 09/01/17 14:00 (Percocet 5-325 Mg) 2 tab Q4H PRN PO 09/01/17 14:00 09/02/17 05:17 (Lakeshia-Colace) 2 tab Q12H PRN PO 09/01/17 14:00 (Ambien) 5 mg HS PRN PO 09/01/17 14:00 (M-M-R Ii Inj) 0.5 ml ONCE ONCE SQ 09/02/17 16:00 09/02/17 16:01 (Boostrix Inj) 0.5 ml ONCE ONCE IM 09/02/17 16:00 09/02/17 16:01 (Zofran Inj) 4 mg Q6H PRN IV PUSH 09/01/17 14:00 Assessment/Plan Problem List: (1) S/P primary low transverse ICD Codes: Z98.891 - History of uterine scar from previous surgery Assessment and Plan POD #1 pt doing well pain well managed with oral pain medication breast feeding, bonding with infant pt to shower today and remove dressing routine care Discharge Planning dc in 1-2 days Amber Chery Sep 02, 2017 08:37
[2017-09-02] MEDS: DOCUSATE SODIUM 50 MG/SENNA 8.6 MG TAB PO PRN (11:10)
[2017-09-02 12:00] VITALS: BP 108/68; PULSE 68; RESP 16; TEMP 98.1; O2SAT 98
--- NOTE | 2017-09-02 12:10 | MP ---
cc: [place] DATE OF SURGERY PREOPERATIVE DIAGNOSIS 1. Transverse lie. 2. Failed external cephalic version. 3. Intrauterine at 39 weeks. POSTOPERATIVE DIAGNOSIS 1. Transverse lie. 2. Failed external cephalic version. 3. Intrauterine at 39 weeks. PROCEDURE Primary low transverse section. ANESTHESIA Spinal. SURGEON Renae Abarca M.D. CO-SURGEON Shirley Eng M.D. FINDINGS Normal female with Apgars of 8 and 9, weight 6 pounds 13 ounces. Normal fallopian tubes, normal ovaries, normal uterus. COMPLICATIONS None. COUNTS Correct. ESTIMATED BLOOD LOSS 750 cc. FLUIDS Crystalloids. CONDITION The patient tolerated the procedure well and went to the recovery room in good condition. PROCEDURE IN DETAIL The patient was taken to the operating room, identified by name band and verbally, given a spinal anesthetic and prepped and draped for abdominal surgery. An examination was done. The baby was transverse. The patient had an ultrasound immediately prior to coming to the operating theater and the baby was indeed transverse lie. Once the timeout had been taken a Pfannenstiel incision was made and taken down to the fascia. The fascia was taken off the rectus muscle by blunt and sharp dissection. The peritoneum was entered under direct vision. The head at this point seemed to slip down into the vertex presentation and the vertex was easily grasped and with the suction delivered with gentle fundal pressure. The hypopharynx and nasopharynx were suctioned. The cord was doubly clamped and cut after 45 seconds of waiting and the infant handed to the resuscitation team. Cord blood was obtained. The placenta was delivered manually. The uterus was curettaged twice with wet laps. The uterus was delivered from the abdomen and the uterine incision was repaired with 0 Vicryl in a running fashion, the second layer imbricating the first. Several small [id number] sutures were needed for small bleeders. The cul-de-sac and gutters were cleaned of blood and debris. The uterus was delivered back into the abdomen and hemostasis was excellent. The rectus muscle was re-approximated with 0 Vicryl in a running fashion. The fascia was repaired with 0 Vicryl from lateral to midline bilaterally. The subcu was repaired with 3-0 Vicryl in a running fashion. The skin was repaired with 4-0 Monocryl in a subcuticular fashion with excellent results. She tolerated the procedure well and went to the recovery room in good condition. R. Duke Abarca MD RJV/BT /1:55 PM /11:54 AM
[2017-09-02] MEDS ORDERED: DIPHTH/TETANUS/ACEL PERTUSSIS (BOOSTER) 0.5 ML VIAL/PFS IM ONE (16:00)
[2017-09-02] MEDS ORDERED: MEASLES, MUMPS, RUBELLA VACCINE 0.5 ML VIAL SQ ONE (16:00)
[2017-09-02 20:00] VITALS: BP 121/72; PULSE 97; RESP 20; TEMP 98.3; O2SAT 97
[2017-09-02] MEDS: SODIUM CHLORIDE 0.9% FLUSH 10 ML FLUSH IV FLUSH SCH (21:00)
[2017-09-03] MEDS: IBUPROFEN 600 MG TAB PO PRN ×3 (00:34→11:38)
[2017-09-03] MEDS: DOCUSATE SODIUM 50 MG/SENNA 8.6 MG TAB PO PRN ×2 (00:34→11:37)
[2017-09-03] MEDS: oxyCODONE/ACETAMINOPHEN 5 MG/325 MG TAB PO PRN ×4 (00:34→13:59)
[2017-09-03 08:00] VITALS: BP 117/74; PULSE 88; RESP 18; TEMP 98.5
--- NOTE | 2017-09-03 11:52 | HHI.OB ---
Subjective Post Operative Day: 2 Objective Vitals/I&O Vital Signs Date Time Temp Pulse Resp B/P (MAP) Pulse Ox O2 Delivery O2 Flow Rate FiO2 09/03/17 08:00 98.5 88 18 117/74 (88) 09/02/17 20:00 98.3 97 20 121/72 (88) 97 09/02/17 12:00 98.1 09/02/17 12:00 68 16 108/68 (81) 98 Result Diagram: 09/02/17 0508 Objective Remarks GENERAL: Well-nourished, well-developed patient. CARDIOVASCULAR: Regular rate and rhythm without murmurs, gallops, or rubs. RESPIRATORY: Breath sounds equal bilaterally. No accessory muscle use. ABDOMEN/GI: Abdomen soft, non-tender, bowel sounds present. Incision: Clean, small amount of dried blood, dry and intact. Fundus: Firm, non-tender at umbilicus. GENITOURINARY: Light to moderate bleeding. EXTREMITIES: No cyanosis , non-tender, without signs of DVT, slight lower extremity edema Medications and IVs Current Medications Medications (Trade) Dose Ordered Sig/Amanda Route Start Time Stop Time Status Last Admin (NS Flush) 2 ml BID IV FLUSH 09/01/17 21:00 (NS Flush) 2 ml UNSCH PRN IV FLUSH 09/01/17 14:00 (Mylicon Chew) 80 mg QID PRN PO 09/01/17 14:00 (Tylenol) 650 mg Q6H PRN PO 09/01/17 14:00 (Motrin) 600 mg Q6H PRN PO 09/01/17 14:00 09/03/17 11:38 (Percocet 5-325 Mg) 1 tab Q4H PRN PO 09/01/17 14:00 (Percocet 5-325 Mg) 2 tab Q4H PRN PO 09/01/17 14:00 09/03/17 10:03 (Lakeshia-Colace) 2 tab Q12H PRN PO 09/01/17 14:00 09/03/17 11:37 (Ambien) 5 mg HS PRN PO 09/01/17 14:00 (Zofran Inj) 4 mg Q6H PRN IV PUSH 09/01/17 14:00 Assessment/Plan Problem List: (1) S/P primary low transverse ICD Codes: Z98.891 - History of uterine scar from previous surgery Assessment and Plan POD #2 pt doing well pain well managed with oral pain medication breast feeding and pumping routine care Discharge Planning dc tomorrow Amber Chery Sep 03, 2017 11:52
--- NOTE | 2017-09-03 12:31 | HHI.DS ---
Admission Date Sep 01, 2017 at 10:04 Discharge Date: Sep 03, 2017 Admitting Diagnosis term breech Diagnosis: (1) S/P primary low transverse Diagnosis: Principal ICD Codes: Z98.891 - History of uterine scar from previous surgery Delivery Date: Sep 01, 2017 : Primary Reason: breech : Female Brief History Patient is a 27 year old at 39-1/7 weeks gestation who presents today for C -section for breech presentation. She had a failed external cephalic version on 08/23/17. She denies any vaginal bleeding or discharge. No gush or leaking of fluid. Positive movement. Hospital Course term breech presentation primary c section routine Pt Condition on Discharge: Good Discharge Disposition: Discharge Home Discharge Instructions Diet Instructions: As Tolerated, No Restrictions Additional Diet Instructions: Drink at least 8 - 16 oz bottles of water a day Activities You Can Perform: Shower Only-No Bath Activities to Avoid: Prolonged Standing, Strenuous Activity, Sexual Activity Additional Activity Instruc.: No driving until off pain medications Do not lift anything heavier than your baby in an carrier Follow up Referrals: [facility] - 1 Week @ [facility] Amber Chery Sep 03, 2017 12:31
[2017-09-03] MEDS ORDERED: OXYC1TAB63 PO (15:27)
[2017-09-03] MEDS ORDERED: IBUP-232 PO (15:27)
== END 2017-09-03 16:05 | disposition home or self-care (01) | DRG 766 ==
LOC: H2EB 10:04 → H1EA 15:16
PROVIDERS: ADMIT Obstetrics & Gynecology; ATTEND Obstetrics & Gynecology
PROC: 10D00Z1 Extraction of Products of Conception, Low, Open Approach (ICD-10-PCS; principal; 2017-09-01)
DX: O32.2XX0 Maternal care for transverse and oblique lie, not applicable or unspecified (principal); Z37.0 Single live birth; Z3A.39 39 weeks gestation of pregnancy
CPT/HCPCS: 59025; 80307; 81001; 85025; 86850; 86900; 86901; 90715; J0690; J1885; J2274; J2370; J2405; J2590; J7120